=== PATIENT | male | born 1985 | race Caucasian/White ===

== ENCOUNTER 2021-04-06 03:16 | Emergency (ER) | payer SELFPAY ==
[~2021-04-06] VITALS: Ht 177.8 cm; Wt 75.0 kg
[2021-04-06 03:19] VITALS: BP 144/92
== END 2021-04-06 06:01 | disposition left against medical advice (07) ==
LOC: ER 03:17
DX: S01.81XA Laceration without foreign body of other part of head, initial encounter (principal); Z53.21 Procedure and treatment not carried out due to patient leaving prior to being seen by health care provider; X58.XXXA Exposure to other specified factors, initial encounter; Y93.9 Activity, unspecified; Y92.9 Unspecified place or not applicable; Y99.9 Unspecified external cause status

== ENCOUNTER 2021-07-05 17:13 | Inpatient (IN) | payer OTHER ==
[~2021-07-05] VITALS: Ht 175.3 cm; Wt 75.0 kg
[2021-07-05] MEDS ORDERED: normal saline 1000ML IV soln IVB ONE (21:20)
[2021-07-05] MEDS ORDERED: piperacillin/tazo 3.375gm/50ml 50 ML IV ONE (21:20)
[2021-07-05] MEDS ORDERED: ketorolac trometh. 30mg/ml inj. IV ONE (21:20)
[2021-07-05] MEDS ORDERED: vancomycin/NS 1 GM ADD-VANTAGE 250 ML IV ONE (21:20)
[2021-07-05] MEDS ORDERED: fentaNYL/PF 50MCG/1 ML 2ML syringe IV ONE (21:20)
[2021-07-05] MEDS ORDERED: TETanus/Pertussis (Acell)/Diphther VAC/PF (Tdap-Adult) 0.5ml syringe IMVAC ONE (21:30)
[2021-07-05 21:42] LABS: BASOPHILS # (AUTO) 0.1 X10'3 (0-0.2); BASOPHILS % (AUTO) 0.7 % (0-1); EOSINOPHILS # (AUTO) 0.1 X10'3 (0-0.9); EOSINOPHILS % (AUTO) 0.6 % (0-6); HEMATOCRIT 40.8 % (42.0-52.0); HEMOGLOBIN 14.2 g/dl (14.0-17.9); LYMPHOCYTES # (AUTO) 1.4 X10'3 (1.1-4.8); MEAN CORPUSCULAR HEMOGLOBIN 31.9 PG (27.0-31.0); MEAN CORPUSCULAR HGB CONC 34.8 g/dL (33.0-36.5); MEAN CORPUSCULAR VOLUME 91.6 FL (78-98); MONOCYTES # (AUTO) 1.1 X10'3 (0-0.9); MONOCYTES % (AUTO) 11.3 % (2-12); NEUTROPHILS # (AUTO) 6.9 X10'3 (1.8-7.7); NEUTROPHILS % (AUTO) 72.4 % (42-75); PLATELET COUNT 369 X10'3 (140-440); RED BLOOD COUNT 4.46 X10'6 (4.70-6.10); RED CELL DISTRIBUTION WIDTH 13.6 % (11.5-14.5); WHITE BLOOD COUNT 9.5 X10'3 (4.5-11.0)
[2021-07-05 21:56] LABS: ALANINE AMINOTRANSFERASE 94 U/L (12-78); ALBUMIN 3.6 G/DL (3.4-5.0); ALBUMIN/GLOBULIN RATIO 0.7 (1.1-1.5); ALKALINE PHOSPHATASE 113 IU/L (46-116); ANION GAP 9 (8-16); ASPARTATE AMINO TRANSFERASE 48 U/L (10-37); BILIRUBIN,TOTAL 0.3 MG/DL (0.1-1.0); BLOOD UREA NITROGEN 12 MG/DL (7-18); BUN/CREATININE RATIO 12.6 (5.4-32.0); CHLORIDE 100 MMOL/L (99-107); CREATININE 0.95 MG/DL (0.60-1.10); GLUCOSE 115 MG/DL (70-104); MAGNESIUM 2.3 MG/DL (1.5-2.4); POTASSIUM 3.7 MMOL/L (3.5-5.1); SODIUM 136 MMOL/L (135-145); TOTAL CARBON DIOXIDE 27.2 MMOL/L (24-32); TOTAL PROTEIN 9.1 G/DL (6.4-8.2); eGFR 90 ML/MIN
[2021-07-06] VITALS (37 sets, daily range): BP systolic 105–160; BP diastolic 68–113
[2021-07-06] MEDS ORDERED: morphine 4 MG/ML inj SYRINge IV ONE ×2 (04:40→08:40)
[2021-07-06] MEDS ORDERED: ondansetron/PF 4mg/2ml inj IV ONE (04:40)
[2021-07-06] MEDS ORDERED: piperacillin/tazo 3.375gm/50ml 50 ML IV ONE (08:40)
[2021-07-06] MEDS ORDERED: magnesium hydroxide 30ml (MOM) UD suspension PO PRN (08:40)
[2021-07-06] MEDS ORDERED: mag hydrox/Alum hydrox/simeth 30ml oral suspension PO PRN (08:40)
[2021-07-06] MEDS ORDERED: vancomycin/NS 1 GM ADD-VANTAGE 250 ML IV ONE (08:40)
[2021-07-06] MEDS ORDERED: acetaminophen 325mg tablet PO PRN (08:40)
[2021-07-06] MEDS ORDERED: ondansetron/PF 4mg/2ml inj IV PRN ×2 (08:40→11:20)
[2021-07-06] MEDS ORDERED: morphine 2 MG/ML inj. syringe IV PRN ×2 (08:40→11:20)
[2021-07-06] MEDS: normal saline 1000ml 1,000 ML IV SCH ×2 (09:13→18:40)
[2021-07-06] MEDS: VANCOmycin 1250MG/NS 250ml Bag 250 ML IV SCH ×2 (10:28→22:26)
--- NOTE | 2021-07-06 10:47 | NUR ---
OR TECH AT BEDSIDE TO TRANSPORT PATIENT. Addendum: 07/06/21 at 1047 by CERAZO MOTHER AT BEDSIDE.
--- NOTE | 2021-07-06 10:47 | NUR ---
REPORT GIVEN TO RECOVERY @ EXT 1400.
[2021-07-06 11:03] LABS: CLARITY,URINE CLEAR (Clear); COLOR,URINE Yellow (Yellow); UA COLLECTION TYPE VOIDED
[2021-07-06 11:04] LABS: GLUCOSE, URINE NEGATIVE (Neg); KETONES,URINE NEGATIVE (Neg); LEUKOCYTE ESTERASE ,URINE NEGATIVE (Neg); NITRITES, URINE NEGATIVE (Neg); OCCULT BLOOD,URINE NEGATIVE (Neg); PROTEIN,URINE NEGATIVE (Neg); UROBILINOGEN,URINE 0.2 E.U/dL (0.2-1.0)
[2021-07-06 11:12] LABS: URINE AMPHETAMINE SCREEN POSITIVE (Neg); URINE BARBITUATE SCREEN NEGATIVE (Neg); URINE BENZODIAZEPINES SCREEN NEGATIVE (Neg); URINE CANNABINOID SCREEN POSITIVE (Neg); URINE COCAINE SCREEN NEGATIVE (Neg); URINE METHADONE SCREEN NEGATIVE (Neg); URINE OPIATE SCREEN POSITIVE (Neg); URINE PHENCYCLIDINE SCREEN NEGATIVE (Neg)
[2021-07-06] MEDS ORDERED: proCHLORperazine 10 MG/2 ml inj IV PRN (11:20)
[2021-07-06] MEDS ORDERED: morphine 4 MG/ML inj SYRINge IV PRN (11:20)
[2021-07-06] MEDS ORDERED: ringers solution, lacted 1,000 ML IV SCH (11:20)
[2021-07-06] MEDS ORDERED: meperidine/PF 25mg/ml syringe IV PRN ×3 (11:20)
[2021-07-06] MEDS ORDERED: midazolam 1 mg/ML 2ml injection ONE (11:24)
[2021-07-06] MEDS ORDERED: fentaNYL /PF 50mcg/ml 5ml ampule ONE (11:24)
[2021-07-06] MEDS ORDERED: ondansetron/PF 4mg/2ml inj ONE (11:53)
[2021-07-06] MEDS ORDERED: LIDOcaine 2% (20mg/ml) 5ml vial ONE (11:53)
[2021-07-06] MEDS ORDERED: dexamethasone sod phosphate 4mg/ml inj. ONE (11:53)
[2021-07-06] MEDS ORDERED: rocuronium 10mg/ml inj IV ONE (11:53)
[2021-07-06] MEDS ORDERED: propofol inj 20 ML IV ONE (11:53)
[2021-07-06] MEDS ORDERED: sugammadex 200mg/2ml injection IV ONE (11:54)
--- NOTE | 2021-07-06 12:15 | NUR ---
ARRIVED TO RECOVERY ROOM VIA [facility], ACCOMPANIED BY DR ROMEO, ANESTHESIA - REPORT GIVEN, PT SLEEPING STILL, VSS, DENIES PAIN, PIV 20 TO RIGHT FA, LEFT HAND WRAPPED-DRSG CDI, FINGERS PINK, WARM, +CAP REFILL NOTED.
--- NOTE | 2021-07-06 13:30 | NUR ---
DR ROMEO CALLED GIVEN ORDERS FOR BP MEDS TO ASSIST IN CONTINUED ELEVATED BP, PT IS RESTING QUIETLY NO SN/SX OF PAIN NOTED.
[2021-07-06] MEDS ORDERED: hydrALAZINE 20mg/ml inj. IV PRN (13:35)
[2021-07-06] MEDS ORDERED: NO HOME MEDS PO (13:39)
[2021-07-06] MEDS: labetalol 20mg/4ml (5mg/ml) syringe IV PRN ×3 (13:52→14:25)
--- NOTE | 2021-07-06 14:30 | NUR ---
LABETALOL GIVEN X 3 DOSES PER ORDER, DBP LOOKING BETTER-SEE VS SPREADSHEET, PT STILL SLEEPING AROUSES EASILY, DENIES PAIN, FINGERS TO LEFT HAND-PINK, WARM.
--- NOTE | 2021-07-06 15:00 | NUR ---
HYDRALAZINE GIVEN WELL FOR CONTINUED HIGH DBP, DENIES PAIN, WAITING FOR ROOM ON SURGICAL
--- NOTE | 2021-07-06 16:35 | NUR ---
PT RESTING QUIETLY, AWAKENS TO VOICE, DENIES PAIN, VSS DBP WNL NOW AFTER HYDRALAZINE IVP GIVEN, LEFT HAND DRSG-CDI, FINGERS PINK AND WARM, SENSATION RETURNING AND ABLE TO MOVE THEM, SMALL AMOUNT OF PACKING IN WOUND, PIV 18G TO RFA-NS RUNNING AT 100ML/HR, REPORT CALLED TO RN JC-ALL QUESTIONS ANSWERED. TAKEN WITH NO BELONGINGS (MOM HAS) TO ROOM 355B, PT WALKED TO BED AFTER VOIDING IN BATHROOM, HOOKE DUP TO MONITORS, PRIMARY RN IN ROOM TO RECEIVE PT.
--- NOTE | 2021-07-06 18:11 | NUR ---
Patient in room [facility]. I have received report from LAUREN Larios and had the opportunity to ask questions and assume patient care.
[2021-07-06] MEDS: docusate sod 100mg capsule PO SCH (19:44)
[2021-07-07] VITALS: BP 128/74
[2021-07-07] MEDS: normal saline 1000ml 1,000 ML IV SCH ×2 (01:12→14:40)
[2021-07-07 05:31] LABS: BASOPHILS # (AUTO) 0.1 X10'3 (0-0.2); BASOPHILS % (AUTO) 0.5 % (0-1); EOSINOPHILS % (AUTO) 0.2 % (0-6); HEMATOCRIT 34.1 % (42.0-52.0); HEMOGLOBIN 11.9 g/dl (14.0-17.9); LYMPHOCYTES # (AUTO) 1.4 X10'3 (1.1-4.8); LYMPHOCYTES % (AUTO) 13.4 % (21-51); MEAN CORPUSCULAR HEMOGLOBIN 31.7 PG (27.0-31.0); MEAN CORPUSCULAR HGB CONC 34.8 g/dL (33.0-36.5); MEAN CORPUSCULAR VOLUME 91.2 FL (78-98); MEAN PLATELET VOLUME 7.1 FL (7.4-10.4); MONOCYTES # (AUTO) 1.5 X10'3 (0-0.9); NEUTROPHILS # (AUTO) 7.8 X10'3 (1.8-7.7); NEUTROPHILS % (AUTO) 71.9 % (42-75); PLATELET COUNT 332 X10'3 (140-440); RED BLOOD COUNT 3.74 X10'6 (4.70-6.10); RED CELL DISTRIBUTION WIDTH 13.5 % (11.5-14.5); WHITE BLOOD COUNT 10.8 X10'3 (4.5-11.0)
[2021-07-07 05:37] LABS: ALBUMIN 2.6 G/DL (3.4-5.0); ANION GAP 10 (8-16); BLOOD UREA NITROGEN 22 MG/DL (7-18); BUN/CREATININE RATIO 11.1 (5.4-32.0); CHLORIDE 107 MMOL/L (99-107); CREATININE 1.98 MG/DL (0.60-1.10); GLUCOSE 117 MG/DL (70-104); POTASSIUM 3.7 MMOL/L (3.5-5.1); SODIUM 142 MMOL/L (135-145); TOTAL CARBON DIOXIDE 24.6 MMOL/L (24-32); eGFR 38 ML/MIN
--- NOTE | 2021-07-07 06:39 | NUR ---
Problems reprioritized. Patient report given, questions answered & plan of care reviewed with LAUREN Desouza.
[2021-07-07 07:00] VITALS: BP 109/61
--- NOTE | 2021-07-07 07:05 | NUR ---
Patient in room [facility]. I have received report from LAUREN Serrano and had the opportunity to ask questions and assume patient care.
[2021-07-07] MEDS: morphine 2 MG/ML inj. syringe IV PRN ×2 (08:22→18:04)
[2021-07-07] MEDS: docusate sod 100mg capsule PO SCH ×2 (08:26→21:28)
[2021-07-07] MEDS: CefTRIAXone 2gm/D5W 50ml BAG 50 ML IV SCH (08:27)
[2021-07-07] MEDS: enoxaparin 40mg/0.4ml syringe SUBCUT SCH (08:30)
[2021-07-07] MEDS: VANCOmycin 1250MG/NS 250ml Bag 250 ML IV SCH ×2 (09:42→21:29)
[2021-07-07] MEDS ORDERED: HYDROcodone/acetaminophen 5mg/325mg tablet PO PRN (11:40)
[2021-07-07] MEDS ORDERED: HYDROcodone/acetaminophen 10/325mg tab PO PRN (11:40)
[2021-07-07 11:45] VITALS: BP 133/83
--- NOTE | 2021-07-07 18:08 | NUR ---
Wound care in to see patient for dressing changes.
--- NOTE | 2021-07-07 18:46 | NUR ---
Problems reprioritized. Patient report given, questions answered & plan of care reviewed with LAUREN Torres.
--- NOTE | 2021-07-07 19:51 | NUR ---
WOUND INFECTION EDUCATION PROVIDED BY WOUND CARE 1. Patient instructed to call their primary doctor, or go the ED immediately if any of the following symptoms occur: * Increased pain in wound * Increase in drainage from the wound * Redness in the skin surrounding the wound * Warmth in the skin surrounding the wound * Bleeding from the wound * Temperature of 101 or greater 2. If any of these occur while in the hospital tell a nurse immediately. Addendum: 07/07/21 at 1951 by Shamika Crowe RN Amended: Links added.
[2021-07-07 20:00] VITALS: BP 130/89
[2021-07-07] MEDS ORDERED: VANCOMYCIN LEVEL IV ONE (20:30)
[2021-07-07] MEDS: lactobacillus rhamnosus 10,000 MMU CELLS/CAPSULE PO SCH (21:28)
[2021-07-08] VITALS: BP 124/84
[2021-07-08] MEDS: normal saline 1000ml 1,000 ML IV SCH ×3 (01:12→20:40)
[2021-07-08 06:01] LABS: ALBUMIN 2.5 G/DL (3.4-5.0); ANION GAP 11 (8-16); BLOOD UREA NITROGEN 24 MG/DL (7-18); BUN/CREATININE RATIO 9.3 (5.4-32.0); CALCIUM 8.3 MG/DL (8.5-10.1); CHLORIDE 107 MMOL/L (99-107); CREATININE 2.57 MG/DL (0.60-1.10); GLUCOSE 96 MG/DL (70-104); POTASSIUM 4.1 MMOL/L (3.5-5.1); SODIUM 142 MMOL/L (135-145); TOTAL CARBON DIOXIDE 23.9 MMOL/L (24-32); eGFR 28 ML/MIN
[2021-07-08 06:11] LABS: BASOPHILS # (AUTO) 0.1 X10'3 (0-0.2); BASOPHILS % (AUTO) 0.8 % (0-1); EOSINOPHILS # (AUTO) 0.1 X10'3 (0-0.9); EOSINOPHILS % (AUTO) 1.1 % (0-6); HEMATOCRIT 33.7 % (42.0-52.0); HEMOGLOBIN 11.7 g/dl (14.0-17.9); LYMPHOCYTES # (AUTO) 1.1 X10'3 (1.1-4.8); LYMPHOCYTES % (AUTO) 14.5 % (21-51); MEAN CORPUSCULAR HEMOGLOBIN 31.9 PG (27.0-31.0); MEAN CORPUSCULAR HGB CONC 34.9 g/dL (33.0-36.5); MEAN CORPUSCULAR VOLUME 91.3 FL (78-98); MEAN PLATELET VOLUME 7.1 FL (7.4-10.4); MONOCYTES # (AUTO) 1.3 X10'3 (0-0.9); MONOCYTES % (AUTO) 16.8 % (2-12); NEUTROPHILS % (AUTO) 66.8 % (42-75); PLATELET COUNT 352 X10'3 (140-440); RED BLOOD COUNT 3.69 X10'6 (4.70-6.10); RED CELL DISTRIBUTION WIDTH 13.5 % (11.5-14.5); WHITE BLOOD COUNT 7.5 X10'3 (4.5-11.0)
--- NOTE | 2021-07-08 06:32 | NUR ---
Problems reprioritized. Patient report given, questions answered & plan of care reviewed with nate schroeder.
[2021-07-08 07:31] LABS: PLATELET ESTIMATE NORMAL; TOTAL CELLS COUNTED 100
[2021-07-08 07:35] VITALS: BP 117/69
[2021-07-08] MEDS ORDERED: LIDOcaine 4% (40 mg/ml) topical solution 50ml TP PRN (08:00)
[2021-07-08] MEDS: docusate sod 100mg capsule PO SCH ×2 (08:03→20:00)
[2021-07-08] MEDS: lactobacillus rhamnosus 10,000 MMU CELLS/CAPSULE PO SCH ×2 (08:03→20:00)
[2021-07-08] MEDS: enoxaparin 40mg/0.4ml syringe SUBCUT SCH (08:07)
[2021-07-08] MEDS: CefTRIAXone 2gm/D5W 50ml BAG 50 ML IV SCH (08:10)
[2021-07-08 12:30] VITALS: BP 137/80
[2021-07-08] MEDS: ceFAZolin/D5W- 1GM premix 50 ML IV SCH (16:33)
--- NOTE | 2021-07-08 17:38 | NUR ---
Attempted patients wound care dressing change. He is very fatigued threw his blanket over his head and said he will do it later after dinner.
--- NOTE | 2021-07-08 18:23 | NUR ---
Problems reprioritized. Patient report given, questions answered & plan of care reviewed with LAUREN Beltrán.
[2021-07-09] MEDS: ceFAZolin/D5W- 1GM premix 50 ML IV SCH ×3 (00:39→16:28)
[2021-07-09] MEDS ORDERED: VANCOMYCIN LEVEL IV ONE (03:00)
--- NOTE | 2021-07-09 06:27 | NUR ---
Problems reprioritized. Patient report given, questions answered & plan of care reviewed with LAUREN Edmonds .
--- NOTE | 2021-07-09 06:38 | NUR ---
Patient in room [facility]. I have received report from Vanessa AGUILAR and had the opportunity to ask questions and assume patient care. Addendum: 07/09/21 at 0639 by JORGE MARIN STUDENT -NU Received report from Leigh Ann AGUILAR, not Vanessa.
[2021-07-09 06:59] LABS: BASOPHILS # (AUTO) 0.1 X10'3 (0-0.2); BASOPHILS % (AUTO) 0.9 % (0-1); EOSINOPHILS # (AUTO) 0.1 X10'3 (0-0.9); EOSINOPHILS % (AUTO) 1.8 % (0-6); HEMOGLOBIN 11.9 g/dl (14.0-17.9); LYMPHOCYTES # (AUTO) 1.2 X10'3 (1.1-4.8); LYMPHOCYTES % (AUTO) 17.1 % (21-51); MEAN CORPUSCULAR HEMOGLOBIN 31.2 PG (27.0-31.0); MEAN CORPUSCULAR HGB CONC 34.1 g/dL (33.0-36.5); MEAN CORPUSCULAR VOLUME 91.3 FL (78-98); MEAN PLATELET VOLUME 7.1 FL (7.4-10.4); MONOCYTES # (AUTO) 1.3 X10'3 (0-0.9); MONOCYTES % (AUTO) 17.8 % (2-12); NEUTROPHILS # (AUTO) 4.5 X10'3 (1.8-7.7); NEUTROPHILS % (AUTO) 62.4 % (42-75); PLATELET COUNT 367 X10'3 (140-440); RED BLOOD COUNT 3.83 X10'6 (4.70-6.10); RED CELL DISTRIBUTION WIDTH 13.3 % (11.5-14.5); WHITE BLOOD COUNT 7.2 X10'3 (4.5-11.0)
[2021-07-09 07:00] VITALS: BP 131/90
[2021-07-09 07:04] LABS: ALBUMIN 2.6 G/DL (3.4-5.0); ANION GAP 10 (8-16); BLOOD UREA NITROGEN 26 MG/DL (7-18); BUN/CREATININE RATIO 9.7 (5.4-32.0); CHLORIDE 107 MMOL/L (99-107); CREATININE 2.68 MG/DL (0.60-1.10); GLUCOSE 99 MG/DL (70-104); POTASSIUM 4.1 MMOL/L (3.5-5.1); SODIUM 142 MMOL/L (135-145); TOTAL CARBON DIOXIDE 25.5 MMOL/L (24-32); VANCOMYCIN,RANDOM 12.8 UG/ML; eGFR 27 ML/MIN
[2021-07-09] MEDS: normal saline 1000ml 1,000 ML IV SCH ×3 (08:33→23:19)
[2021-07-09] MEDS: docusate sod 100mg capsule PO SCH ×2 (08:37→20:00)
[2021-07-09] MEDS: lactobacillus rhamnosus 10,000 MMU CELLS/CAPSULE PO SCH ×2 (08:37→20:36)
[2021-07-09] MEDS: enoxaparin 40mg/0.4ml syringe SUBCUT SCH (08:38)
[2021-07-09 11:00] VITALS: BP 122/78
[2021-07-09] MEDS ORDERED: LIDOcaine 2% 10ml TOPICAL JELLY (Urojet) TP ONE (15:05)
--- NOTE | 2021-07-09 16:41 | NUR ---
PAGER ID: [phone] MESSAGE: [id number] Johanna Waller: patient refused branch catheter. promised that he would use urinal for strict I&O. thanks! [phone]
--- NOTE | 2021-07-09 17:00 | NUR ---
Patient adamantly refuses Beltran catheter. During insertion he was arching his back and pulling against it/putting his hands in front of penis, screaming & crying. Explained to him the importance of being able to monitor his renal function. He said he promises he will use the urinal and allow nursing staff to monitor his strict intake and output. Notified MD of this refusal, no call back.
[2021-07-09 17:41] LABS: UA COLLECTION TYPE URINAL
[2021-07-09 17:42] LABS: CLARITY,URINE CLEAR (Clear); COLOR,URINE STRAW (Yellow); GLUCOSE, URINE NEGATIVE (Neg); KETONES,URINE NEGATIVE (Neg); LEUKOCYTE ESTERASE ,URINE NEGATIVE (Neg); NITRITES, URINE NEGATIVE (Neg); OCCULT BLOOD,URINE NEGATIVE (Neg); PROTEIN,URINE NEGATIVE (Neg); UROBILINOGEN,URINE 0.2 E.U/dL (0.2-1.0)
[2021-07-09 17:43] LABS: TOTAL PROTEIN,URINE RANDOM 8.6 MG/DL
[2021-07-09 18:00] VITALS: BP 127/67
--- NOTE | 2021-07-09 18:00 | NUR ---
Patient in room [facility]. I have received report from LAUREN Pat and had the opportunity to ask questions and assume patient care.
--- NOTE | 2021-07-09 18:18 | NUR ---
Problems reprioritized. Patient report given, questions answered & plan of care reviewed with Warren AGUILAR.
[2021-07-09 18:30] LABS: UA EOSINOPHILS NO EOS /HPF
--- NOTE | 2021-07-09 18:33 | NUR ---
I have received report from KHAI Hunter student, and LAUREN Pat and had the opportunity to ask questions and assume patient care
--- NOTE | 2021-07-09 20:20 | NUR ---
Discussion with patient regarding MD order for FC placement. Pt refused cath placement. Expressed that he will use the urinal. Explanation of MD reasoning. Pt still refusing placement. Has been using urinal.
[2021-07-10] VITALS: BP 120/71
[2021-07-10] MEDS: ceFAZolin/D5W- 1GM premix 50 ML IV SCH ×4 (00:12→23:57)
[2021-07-10] MEDS: normal saline 1000ml 1,000 ML IV SCH ×4 (04:54→23:58)
--- NOTE | 2021-07-10 06:33 | NUR ---
I agree with LAUREN Mendozasenior manager mmcoe, documentation, and report given to LAUREN Dietrich
--- NOTE | 2021-07-10 06:34 | NUR ---
Problems reprioritized. Patient report given, questions answered & plan of care reviewed with LAUREN Dietrich.
--- NOTE | 2021-07-10 06:41 | NUR ---
Patient in room [facility]. I have received report from LAUREN Kelley and kai Mendoza RN and had the opportunity to ask questions and assume patient care.
[2021-07-10 06:48] LABS: BASOPHILS # (AUTO) 0.1 X10'3 (0-0.2); BASOPHILS % (AUTO) 1.1 % (0-1); EOSINOPHILS # (AUTO) 0.1 X10'3 (0-0.9); EOSINOPHILS % (AUTO) 2.2 % (0-6); HEMATOCRIT 33.8 % (42.0-52.0); HEMOGLOBIN 11.9 g/dl (14.0-17.9); LYMPHOCYTES # (AUTO) 1.2 X10'3 (1.1-4.8); LYMPHOCYTES % (AUTO) 19.1 % (21-51); MEAN CORPUSCULAR HEMOGLOBIN 31.9 PG (27.0-31.0); MEAN CORPUSCULAR HGB CONC 35.2 g/dL (33.0-36.5); MEAN CORPUSCULAR VOLUME 90.8 FL (78-98); MEAN PLATELET VOLUME 7.1 FL (7.4-10.4); MONOCYTES # (AUTO) 1.1 X10'3 (0-0.9); MONOCYTES % (AUTO) 17.8 % (2-12); NEUTROPHILS # (AUTO) 3.8 X10'3 (1.8-7.7); NEUTROPHILS % (AUTO) 59.8 % (42-75); PLATELET COUNT 380 X10'3 (140-440); RED BLOOD COUNT 3.73 X10'6 (4.70-6.10); RED CELL DISTRIBUTION WIDTH 13.4 % (11.5-14.5); WHITE BLOOD COUNT 6.3 X10'3 (4.5-11.0)
[2021-07-10 06:54] LABS: ALBUMIN 2.5 G/DL (3.4-5.0); ANION GAP 10 (8-16); BLOOD UREA NITROGEN 29 MG/DL (7-18); BUN/CREATININE RATIO 11.4 (5.4-32.0); CALCIUM 8.1 MG/DL (8.5-10.1); CHLORIDE 108 MMOL/L (99-107); CREATININE 2.55 MG/DL (0.60-1.10); GLUCOSE 107 MG/DL (70-104); POTASSIUM 4.2 MMOL/L (3.5-5.1); SODIUM 143 MMOL/L (135-145); TOTAL CARBON DIOXIDE 25.2 MMOL/L (24-32); eGFR 29 ML/MIN
[2021-07-10 07:00] VITALS: BP 125/82
[2021-07-10 08:07] LABS: ALANINE AMINOTRANSFERASE 50 U/L (12-78); ALBUMIN/GLOBULIN RATIO 0.5 (1.1-1.5); ALKALINE PHOSPHATASE 81 IU/L (46-116); ASPARTATE AMINO TRANSFERASE 28 U/L (10-37); BILIRUBIN,DIRECT 0.1 MG/DL (0-0.3); BILIRUBIN,TOTAL 0.2 MG/DL (0.1-1.0); PHOSPHORUS 4.3 MG/DL (2.3-4.5); TOTAL PROTEIN 7.1 G/DL (6.4-8.2)
[2021-07-10] MEDS: lactobacillus rhamnosus 10,000 MMU CELLS/CAPSULE PO SCH ×2 (09:46→19:14)
[2021-07-10] MEDS: docusate sod 100mg capsule PO SCH ×2 (09:46→19:24)
[2021-07-10] MEDS: enoxaparin 40mg/0.4ml syringe SUBCUT SCH (09:47)
[2021-07-10 12:00] VITALS: BP 114/68
--- NOTE | 2021-07-10 18:41 | NUR ---
Problems reprioritized. Patient report given, questions answered & plan of care reviewed with LAUREN Kaye.
--- NOTE | 2021-07-10 18:46 | NUR ---
Patient in room [facility]. I have received report from KYLE AGUILAR and had the opportunity to ask questions and assume patient care.
[2021-07-10 20:00] VITALS: BP 114/77
[2021-07-11] VITALS: BP 121/86
[2021-07-11 06:01] LABS: ALBUMIN 2.6 G/DL (3.4-5.0); ANION GAP 10 (8-16); BLOOD UREA NITROGEN 23 MG/DL (7-18); BUN/CREATININE RATIO 10.4 (5.4-32.0); CALCIUM 8.5 MG/DL (8.5-10.1); CHLORIDE 108 MMOL/L (99-107); CREATININE 2.21 MG/DL (0.60-1.10); GLUCOSE 93 MG/DL (70-104); POTASSIUM 4.1 MMOL/L (3.5-5.1); SODIUM 144 MMOL/L (135-145); TOTAL CARBON DIOXIDE 26.1 MMOL/L (24-32); eGFR 34 ML/MIN
[2021-07-11 06:07] LABS: BASOPHILS # (AUTO) 0.1 X10'3 (0-0.2); EOSINOPHILS # (AUTO) 0.2 X10'3 (0-0.9); HEMATOCRIT 32.8 % (42.0-52.0); HEMOGLOBIN 11.5 g/dl (14.0-17.9); LYMPHOCYTES # (AUTO) 1.3 X10'3 (1.1-4.8); LYMPHOCYTES % (AUTO) 21.3 % (21-51); MEAN CORPUSCULAR HEMOGLOBIN 31.8 PG (27.0-31.0); MEAN CORPUSCULAR HGB CONC 35.1 g/dL (33.0-36.5); MEAN CORPUSCULAR VOLUME 90.5 FL (78-98); MEAN PLATELET VOLUME 6.9 FL (7.4-10.4); MONOCYTES % (AUTO) 16.6 % (2-12); NEUTROPHILS # (AUTO) 3.5 X10'3 (1.8-7.7); NEUTROPHILS % (AUTO) 58.1 % (42-75); PLATELET COUNT 388 X10'3 (140-440); RED BLOOD COUNT 3.63 X10'6 (4.70-6.10)
--- NOTE | 2021-07-11 06:15 | NUR ---
Problems reprioritized. Patient report given, questions answered & plan of care reviewed with LEONARDO AGUILAR.
--- NOTE | 2021-07-11 06:44 | NUR ---
Patient in room [facility]. I have received report from LAUREN Kaye and had the opportunity to ask questions and assume patient care.
[2021-07-11 07:04] VITALS: BP 117/76
[2021-07-11] MEDS: lactobacillus rhamnosus 10,000 MMU CELLS/CAPSULE PO SCH (08:45)
[2021-07-11] MEDS: docusate sod 100mg capsule PO SCH (08:45)
[2021-07-11] MEDS: enoxaparin 40mg/0.4ml syringe SUBCUT SCH (08:45)
[2021-07-11] MEDS: normal saline 1000ml 1,000 ML IV SCH (08:55)
[2021-07-11] MEDS: ceFAZolin/D5W- 1GM premix 50 ML IV SCH (09:40)
--- NOTE | 2021-07-11 11:03 | NUR ---
Initial: Pt admitted w/ swelling and pain in L hand little finger, underwent I&D 07/06 per EMR. Per MD note, pt currently going through meth withdrawals and possible CONRAD. PO intake on Regular diet inconsistent, avg 41% x 13 meals. Pt will refuse some meals but eat 75-100% of others possibly related to withdrawals. Will provide Shakes BID LD in attempt to supplement the meals pt refuses. LBM 07/10 w/ routine colace though pt sometimes refuses. Will continue to monitor. Recs: 1. Continue Regular diet as tolerated 2. Shakes BID LD 3. Bowel care per rx 4. Weekly wts Addendum: 07/11/21 at [address] Amended: Links added.
[2021-07-11 11:57] VITALS: BP 119/80
[2021-07-11] MEDS ORDERED: CLIN-97 PO (15:44)
--- NOTE | 2021-07-11 16:30 | NUR ---
Student documentation: I have reviewed and agree with all interventions, assessments performed and documented by SN Natalya. Student Medication Administration: For this medication-pass time frame, all medication were reviewed, dispensed, administered and documented per hospital policy by SN Natalya.
--- NOTE | 2021-07-11 16:31 | NUR ---
Pt alert and oriented and pleasant. He is in no apparent acute distress. Educated pt with discharge instructions and wound care/dressing changes. Pt verbalized understanding and demonstrated dressing change back to RN and student RN. Pt will proceed to find PCP and follow up with follow up appt and lab work. He was escorted out by Yaz live ammunition inspector to aunt outside of the lobby.
== END 2021-07-11 16:30 | disposition home or self-care (01) | DRG 506 ==
LOC: ER 17:14 → ED HOLD 07-06 08:39 → SUR 3N 07-06 18:11
PROVIDERS: ADMIT Family Medicine; ATTEND Family Medicine
PROC: 3E0234Z Introduction of Serum, Toxoid and Vaccine into Muscle, Percutaneous Approach (ICD-10-PCS; 2021-07-05)
PROC: 0R9V0ZZ Drainage of Left Metacarpophalangeal Joint, Open Approach (ICD-10-PCS; principal; 2021-07-06 11:11)
DX: M65.842 Other synovitis and tenosynovitis, left hand (principal); N17.0 Acute kidney failure with tubular necrosis; L03.114 Cellulitis of left upper limb; L02.512 Cutaneous abscess of left hand; F17.210 Nicotine dependence, cigarettes, uncomplicated; B95.61 Methicillin susceptible Staphylococcus aureus infection as the cause of diseases classified elsewhere; Z20.822 Contact with and (suspected) exposure to COVID-19; F15.10 Other stimulant abuse, uncomplicated; Z23 Encounter for immunization; Z71.51 Drug abuse counseling and surveillance of drug abuser
CPT/HCPCS: 99285; Z7506; 36415; 71045; 73130; 74018; 76770; 80048; 80053; 80076; 80202; 80305; 81003; 82570; 83605; 83735; 84100; 84145; 84156; 84300; 85007; 85025; 87040; 87070; 87075; 87077; 87102; 87186; 87207; 87635; 90715; 93005; A4618; A6407; A6446; A6449; A7000; C9399; G0378; J0360; J0690; J0696; J1100; J1650; J1885; J2001; J2250; J2270; J2405; J2543; J2704; J3010; J3370; J3490; J7030